=== PATIENT | female | born 1950 | race Caucasian/White ===

== ENCOUNTER → 2023-12-30 14:05 | Outpatient (REF) | payer BC, SELFPAY | LOC: WDC 14:05 | PROVIDERS: ATTENDING PHYSICIAN Obstetrics & Gynecology Gynecology; FAMILY PHYSICIAN Family Medicine | DX: Z12.31 Encounter for screening mammogram for malignant neoplasm of breast (principal) | CPT/HCPCS: 77063; 77067 ==

== ENCOUNTER → 2024-01-02 11:12 | Outpatient (REF) | payer BC, SELFPAY ==
[2024-01-02 12:17] LABS: % Basophils 0.7 % (0-2); % Eosinophils 1.7 % (0-6); % Immature Granulocytes 0.3 % (0-0.5); % Lymphocytes 26.1 % (20.5-51.1); % Neutrophils 62.2 % (42.2-75.2); Absolute Eosinophils 0.1 10^3/uL (0-0.7); Absolute Lymphocytes 1.5 10^3/uL (1.2-3.4); Absolute Monocytes 0.5 10^3/uL (0.1-0.6); Absolute Neutrophils 3.6 10^3/uL (1.4-6.5); Hematocrit 40.3 % (37.0-47.0); Hemoglobin 13.8 g/dL (12.0-16.0); Mean Corp Hgb Conc. 34.2 g/dL (33.0-37.0); Mean Corpuscular Hgb 29.7 pg (27.0-31.0); Mean Corpuscular Volume 86.7 fL (81.0-99.0); Mean Platelet Volume 8.9 fL (7.4-10.4); Nucleated Red Blood Cells % 0 %; Platelet Count 234 10^3/uL (130-400); Red Blood Cell Count 4.65 10^6/uL (4.20-5.40); Red Cell Dist. Width 12.9 % (11.5-14.5); White Blood Cell Count 5.8 10^3/uL (4.8-10.8)
[2024-01-02 12:40] LABS: ALT (SGPT) 28 U/L (0-35); AST (SGOT) 29 U/L (14-36); Albumin 4.2 g/dl (3.5-5.0); Alkaline Phosphatase 57 U/L (38-126); Blood Urea Nitrogen 13 mg/dl (7-17); Calcium 9.4 mg/dl (8.4-10.2); Carbon Dioxide 28 mmol/L (22-30); Chloride 102 mmol/L (98-107); Creatine Phosphokinase 57 U/L (30-135); Glucose 91 mg/dl (70-99); Potassium 4.4 mmol/L (3.5-5.1); Sodium 135 mmol/L (135-145); Total Bilirubin 0.9 mg/dl (0.2-1.3); Total Protein 6.7 g/dl (6.3-8.2); eGFR > 60.00
[2024-01-02 12:58] LABS: Vitamin D, 25-OH*** 51.7 ng/mL (30-80)
[2024-01-02 13:09] LABS: Erythrocyte Sed Rate 8 mm/hour (0-20)
[2024-01-02 13:12] LABS: TSH 1.79 uIU/ml (0.47-4.68)
[2024-01-02 19:09] LABS: Hepatitis B Surface Antigen Negative (Negative)
[2024-01-02 19:26] LABS: Hepatitis C Antibody Negative (Negative)
[2024-01-05 01:38] LABS: SSA 52 (Ro)(ENA) Ab, IgG 1 AU/mL (0-40); SSA 60 (Ro)(ENA) Ab, IgG 1 AU/mL (0-40); SSB (La)(ENA) Ab, IgG 0 AU/mL (0-40)
[2024-01-05 02:53] LABS: CCP Antibody IgG/IgA 3 Units (0-19)
== END ==
LOC: REG 11:12
PROVIDERS: ATTENDING PHYSICIAN Internal Medicine Rheumatology; FAMILY PHYSICIAN Family Medicine
DX: E03.9 Hypothyroidism, unspecified (principal); E55.9 Vitamin D deficiency, unspecified; G56.02 Carpal tunnel syndrome, left upper limb; H04.123 Dry eye syndrome of bilateral lacrimal glands; M06.4 Inflammatory polyarthropathy; M25.511 Pain in right shoulder; M25.512 Pain in left shoulder; M35.3 Polymyalgia rheumatica; M54.50 Low back pain, unspecified; M79.10 Myalgia, unspecified site; Z11.59 Encounter for screening for other viral diseases; Z79.899 Other long term (current) drug therapy
CPT/HCPCS: 36415; 72100; 72170; 73030; 80053; 82306; 82550; 84443; 84550; 85025; 85652; 86140; 86200; 86235; 86803; 87340

== ENCOUNTER → 2024-02-03 13:03 | Outpatient (REF) | payer BC, SELFPAY | LOC: HWRAD 13:03 | PROVIDERS: ATTENDING PHYSICIAN Urology; FAMILY PHYSICIAN Family Medicine | DX: N81.10 Cystocele, unspecified (principal); R33.9 Retention of urine, unspecified; N39.0 Urinary tract infection, site not specified; R31.0 Gross hematuria; M62.89 Other specified disorders of muscle | CPT/HCPCS: 74178; Q9967 ==

== ENCOUNTER → 2024-03-01 11:49 | Outpatient (REF) | payer BC, SELFPAY ==
[2024-03-01 12:37] LABS: Erythrocyte Sed Rate 6 mm/hour (0-20)
[2024-03-01 14:02] LABS: Blood Urea Nitrogen 13 mg/dl (7-17); Calcium 9.8 mg/dl (8.4-10.2); Carbon Dioxide 25 mmol/L (22-30); Chloride 102 mmol/L (98-107); Glucose 107 mg/dl (70-99); Potassium 4.1 mmol/L (3.5-5.1); Sodium 135 mmol/L (135-145); eGFR > 60.00
[2024-03-01 14:07] LABS: C-Reactive Protein < 5.00 mg/L (0.0-10.00)
[2024-03-01 20:33] LABS: Hepatitis B Core Ab, Total Negative (Negative)
[2024-03-03 10:18] LABS: Intact PTH 53.8 pg/ml (13.6-85.8)
[2024-03-03 12:51] LABS: Quantiferon Mitogen minus NIL 4.97 IU/mL; Quantiferon NIL 0.03 IU/mL; Quantiferon TB Gold Plus Negative (Negative)
[2024-03-06 15:22] LABS: IgA 109 mg/dL (68-408); IgG 554 mg/dL (768-1632); IgM 55 mg/dL (35-263)
[2024-03-06 17:56] LABS: Albumin 4.11 g/dL (3.75-5.01); Alpha 1 Globulin 0.28 g/dL (0.19-0.46); Alpha 2 Globulin 0.87 g/dL (0.48-1.05); SPEP IFE Reflex IFE Done; Total Protein-Electrophoresis 6.5 g/dL (6.3-8.2)
== END ==
LOC: REG 11:49
PROVIDERS: ATTENDING PHYSICIAN Internal Medicine Rheumatology; FAMILY PHYSICIAN Family Medicine
DX: D89.2 Hypergammaglobulinemia, unspecified (principal); E21.5 Disorder of parathyroid gland, unspecified; E55.9 Vitamin D deficiency, unspecified; H04.123 Dry eye syndrome of bilateral lacrimal glands; M16.0 Bilateral primary osteoarthritis of hip; M19.011 Primary osteoarthritis, right shoulder; M19.012 Primary osteoarthritis, left shoulder; Z13.820 Encounter for screening for osteoporosis; Z79.899 Other long term (current) drug therapy
CPT/HCPCS: 36415; 80048; 82784; 83970; 84155; 84165; 85652; 86140; 86334; 86480; 86704

== ENCOUNTER → 2024-03-13 13:55 | Outpatient (REF) | payer BC, SELFPAY | LOC: RAD 13:55 | PROVIDERS: ATTENDING PHYSICIAN Internal Medicine Rheumatology; FAMILY PHYSICIAN Family Medicine | DX: M81.0 Age-related osteoporosis without current pathological fracture (principal); Z13.820 Encounter for screening for osteoporosis | CPT/HCPCS: 77080; 77081 ==

== ENCOUNTER → 2024-10-18 10:26 | Outpatient (REF) | payer BC, SELFPAY | LOC: PAVMRI 10:26 | PROVIDERS: ATTENDING PHYSICIAN Psychiatry & Neurology Neurology; FAMILY PHYSICIAN Family Medicine | DX: G37.9 Demyelinating disease of central nervous system, unspecified (principal) | CPT/HCPCS: 70553; 72156; A9575 ==

== ENCOUNTER → 2024-12-05 06:43 | Outpatient (REF) | payer BC, SELFPAY | LOC: MRI 3T 06:43 | PROVIDERS: ATTENDING PHYSICIAN Neurological Surgery; FAMILY PHYSICIAN Family Medicine | DX: M48.062 Spinal stenosis, lumbar region with neurogenic claudication (principal) | CPT/HCPCS: 72148 ==

== ENCOUNTER → 2024-12-31 09:09 | Outpatient (REF) | payer BC, SELFPAY | LOC: HWWDC 09:09 | PROVIDERS: ATTENDING PHYSICIAN Obstetrics & Gynecology Gynecology; FAMILY PHYSICIAN Family Medicine | DX: Z12.31 Encounter for screening mammogram for malignant neoplasm of breast (principal) | CPT/HCPCS: 77063; 77067 ==

== ENCOUNTER → 2025-01-18 09:07 | Outpatient (REF) | payer BC, SELFPAY | LOC: RAD 09:07 | PROVIDERS: ATTENDING PHYSICIAN Internal Medicine Rheumatology; FAMILY PHYSICIAN Family Medicine | DX: M17.0 Bilateral primary osteoarthritis of knee (principal); M35.3 Polymyalgia rheumatica | CPT/HCPCS: 73560; 73565 ==

== ENCOUNTER 2025-07-16 12:30 | Inpatient (IN) | payer MEDICARE, BC, SELFPAY ==
[2025-07-16] VITALS (15 sets, daily range): BP systolic 109–152; BP diastolic 54–75; BMI 26.2
[2025-07-16 08:51] LABS: Hematocrit 39.6 % (37.0-47.0); Hemoglobin 13.2 g/dL (12.0-16.0); Mean Corp Hgb Conc. 33.3 g/dL (33.0-37.0); Mean Corpuscular Volume 89.2 fL (81.0-99.0); Nucleated Red Blood Cells % 0 %; Platelet Count 200 10^3/uL (130-400); Red Cell Dist. Width 12.9 % (11.5-14.5)
[2025-07-16 09:16] LABS: ALT (SGPT) 21 U/L (0-35); AST (SGOT) 22 U/L (14-36); Albumin 4.1 g/dl (3.5-5.0); Alkaline Phosphatase 33 U/L (38-126); Blood Urea Nitrogen 11 mg/dl (7-17); Calcium 9.1 mg/dl (8.4-10.2); Carbon Dioxide 29 mmol/L (22-30); Chloride 106 mmol/L (98-107); Glucose 84 mg/dl (70-99); Potassium 4.2 mmol/L (3.5-5.1); Sodium 140 mmol/L (135-145); Total Protein 6.9 g/dl (6.3-8.2); eGFR > 60.00
[2025-07-16 09:36] LABS: Troponin I < 0.012 ng/ml
--- NOTE | 2025-07-16 10:01 | ED.GENMED ---
History of Present Illness
General
Chief Complaint: Chest Pain
Source: patient
Exam Limitations: none
Time Seen by Provider: 07/16/25 10:01
History of Present Illness
History of Present Illness:
Patient with indigestion-like symptoms for 2 weeks. Nonexertional. However is also noted shortness of breath with exertion recently. Cardiac history. Recently radiated to her jaw. Asymptomatic currently
Past History
Past History
ED Past Medical History: Asthma, CAD and Hypercholesterolemia
ED Past Surgical History: Cardiac, Tonsilectomy, Urological and Other
Social History
Tobacco: Non-smoker
Alcohol: None
Personal:
Living: with family
Employment: Employed
Family History
Family History: Other (Father with colon cancer sister with ovarian cancer mother with coronary artery disease at age 68)
Review of Systems
Review of Systems
All Other Systems: Not applicable
Constitutional: Denies fever
Cardiac: Denies syncope
Phy Exam
Physical Exam
Physical Exam:
GENERAL: Alert and oriented in no apparent distress
EYE: Orbits normal.
NECK: Supple, no significant adenopathy.
ENT: Pharynx without erythema
CARDIAC: Regular rate and rhythm without any obvious murmurs.
LUNGS: Clear breath sounds,normal
ABDOMEN: Soft, without focal tenderness or distention
NEUROLOGICAL: Alert and oriented , grossly non-focal
SKIN: Warm and dry, no rash or lesion, no discoloration, skin intact.
MUSCULOSKELETAL: No edema,no deformity.Good color
PSYCH: Normal and appropriate interaction.
Scores
Heart Score for Chest Pain Patients
STEMI patient?: No
History: Moderately Suspicious
ECG: Nonspecific Repolarization
Age: >/= 65 years
Risk Factors: >/= 3 Risk Factors or History of CAD
Troponin: </= Normal Limit
Heart Score for Chest Pain Patients: 6
Heart Score Risk: 20.3% MACE over next 6 weeks
Course
Orders/Labs/Results
Orders:
Orders
07/16/25 Breakfast
NPO
Allow oral meds: Yes
Allow clear liquids: No
07/16/25 08:20
ECG [Electrocardiogram (*1)] Urgent
Reason for Study: Chest Pain
EKG- Treatment ONCE
07/16/25 08:35
Complete Blood Count/With Diff Urgent
Comprehensive Metabolic Panel Urgent
Glycohemoglobin (HgbA1c) Urgent
Troponin I Urgent
07/16/25 10:19
CXR2 [CR Chest - 2 Views ] Urgent
Comment:
Reason For Exam: cp
07/16/25 10:56
Admit/Transfer Patient As Directed
Co-Sign Provider:
Level of Care: Inpatient admission
Assign to:: IVU
Physician / Group: CBC
Diagnosis: Chest pain
Reason for Hospitalization: Chest pain, coronary artery disease
Expected length of stay greater than two midnights?: Yes
ELOS- Estimated Length of Stay in days: 3
I certify the patient meets the requirements for IP care: Yes
Code Status As Directed
Resuscitation Status: Full Code
PRN Pain Medication Management As Directed
May give lesser potent ordered pain med per pt: Yes
preference::
Protocol:: Medication orders for pain may be administered in a
manner that supports deferring to patient preference
when the pt is:
- Requesting an ordered lesser potent pain medication.
Least to most potent pain medications are defined
as: acetaminophen < NSAID < tramadol < opioids
(morphine, oxycodone, hydromorphone).
- Requesting a lesser dose of the same medication IF
ORDERED.
- Requesting a less intrusive route of administration
if both routes are prescribed by the provider (PO <
IV).
07/16/25 11:11
Add On- LAB Routine
Tests Added?: HgbA1c
07/16/25 11:23
Aspirin Chewable [Low Strength Aspirin] 324 mg PO NOW STA
diazePAM [Valium Injection] 2 mg IV NOW STA
07/16/25 11:33
Troponin I Routine
07/16/25 12:18
Echo 2D MMode Color/Doppler Routine
Reason for Study: chest pain
VTE Contraindication Routine
VTE Mechanical Device Contraindication: Medical Contraindication
Pharmocologic Contraindication: Medical Contraindication
Activity As Directed
Activity Level: As Tolerated
ECG as needed As Directed
ECG as needed for:: Chest Pain
INT (Intravenous Needle Therapy) As Directed
Comment: maintain peripheral IV access
Intake/ Output As Directed
Frequency: Per unit guidelines
Vital Signs As Directed
Frequency: q4h
Weight As Directed
Frequency: Once
Type of Scale: Standing Scale
07/16/25 12:37
Acetaminophen [Tylenol] 500 mg PO Q4HPRN PRN pain
Nitroglycerin Sublingual [Nitrostat (Sublingual)] 0.4 mg SL [id number] PRN
07/16/25 12:56
Albuterol [ProAIR HFA INHALER] 1 puff INH R Q4HPRN PRN
07/16/25 20:00
Famotidine [Pepcid] 40 mg PO BID
Methenamine Hippurate [Hiprex] 1 gram PO BID
07/16/25 22:00
Metoprolol Xl [Toprol Xl] 25 mg PO HS
07/17/25 06:00
Basic Metabolic Panel IN AM
Cardiovascular Evaluation IN AM
07/17/25 08:00
Amlodipine [Norvasc] 5 mg PO DAILY
Aspirin Low Dose EC [Aspir Low (Enteric Coated)] 81 mg PO DAILY
07/17/25 18:00
Rosuvastatin Calcium [Crestor] 5 mg PO MOWEFR@1800
Abnormal Lab Results
07/16/25
08:35
Monocytes % 9.5 H %
(1.7-9.3)
Hemoglobin A1c 5.7 H %
(4.0-5.6)
Alkaline Phosphatase 33 L U/L
(38-126)
07/16/25 08:35
07/16/25 08:35
Vital Signs
Initial and Last Documented VS:
Initial Vital Signs
Temp Pulse Resp BP Pulse Ox
97.7 F 65 18 152/75 98
07/16/25 08:25 07/16/25 08:25 07/16/25 08:25 07/16/25 08:25 07/16/25 08:25
Last Documented Vital Signs
Temp Pulse Resp BP Pulse Ox
97.8 F 56 18 141/70 97
07/16/25 10:27 07/16/25 12:01 07/16/25 12:01 07/16/25 12:01 07/16/25 12:01
MDM/Problems Addressed
Differential Diagnosis Includes:
Concern for unstable angina. Especially with shortness of breath with exertion recently. Cardiac history. With episode radiating to jaw will refer to cardiology. They were concerned enough to have her go to cardiac catheterization
*Radiology
Radiology exam reviewed: preliminary read by ED provider (neg)
*Pulse Oximetry
SaO2: 98
Oxygen Mode of Delivery: Room air
Patient hypoxic: no
*EKG
Interpreted by ED Provider?: Yes
Interpretation: abnormal
Comparison EKG: no changes
Heart Rate: 57
Rate: bradycardiac
Rhythm: sinus
[place]: normal axis
Interval: normal interval
QRS Pattern: normal QRS
Ischemia: no ischemia
*Critical Care Note
Total Time (30-74mins, 75-104mins- exclusive of procedures): Not Applicable
ED Attending Note
-
Portions of this chart may have been created with voice recognition software.� Occasional wrong word or��sound alike� substitutions may have occurred due to the inherent limitations of voice recognition software.
Discharge Plan
Departure
Patient Disposition: Admit
Date of Disposition: 07/16/25
Time of Disposition: 11:07
Presentation/result/management discussed w/ accepting MD/DO: Cardiology
Discharge Problem:
Unstable angina, History of CAD/stent
Interventions
Interventions:
*Risk Screen - Suicide Last Done: 07/16/25 08:25
*General Assessment Last Done: 07/16/25 08:25
*Neglect/Abuse Screening Last Done: 07/16/25 10:27
*ED- Fall Risk Assessment Last Done: 07/16/25 10:27
*ED COVID-19 Vaccine History Last Done: 07/16/25 10:27
*Nursing Disposition Last Done: 07/16/25 12:56
ED- Cardiac Assessment Last Done: 07/16/25 10:27
Discharge Date and Time
Discharge Date/Time: 07/16/25 12:57
--- NOTE | 2025-07-16 11:00 | HPS.HSE ---
Addendum entered and electronically signed by Jovi Burrows MD 07/16/25 11:46:
I saw and examined the patient.
The DIRECTOR OF ELEMENTARY EDUCATION's note was reviewed and I agree with the note.
Comment: 74-year-old female with CAD (BRICE to LAD 2016), endothelial dysfunction, hypercholesterolemia, hypertriglyceridemia, statin intolerance, hypertension, prediabetes, and splenic artery aneurysm who presented to the emergency department today
with a chief complaint of chest pain.
She also has been having ongoing heartburn related pain. This has been on and off for the past few weeks. This is consistent with her previous anginal symptoms. Given her known CAD history, progressively worsening symptoms, and pain consistent
with prior anginal symptoms we will proceed with coronary angiography.
Original Note:
Family Physician
-
Family Physician: Roderick Watkins
Outpatient Director Consumer Affairs: Dr. Melissa
Chief Complaint
-
Chest pain
History of Present Illness
Libertad Stallings is a 74-year-old female with CAD (BRICE to LAD 2015), endothelial dysfunction, hypercholesterolemia, hypertriglyceridemia, statin intolerance, hypertension, prediabetes, and splenic artery aneurysm who presented to the emergency
department today with a chief complaint of chest pain. She reports it is a chest burning sensation that is reminiscent of indigestion. It radiates into her left jaw. She reports it was 9/10 in severity. This occurred for several hours last night.
She was scared to go to sleep. Currently, she is still having chest pain 5/10. Her 'GERD feelings' have been ongoing for several weeks. She reports this is reminiscent prior to getting a stent in the past. The main difference is that it was more
severe and she had shortness of breath in addition to the chest burning sensation. When she required LAD PCI, she had an abnormal troponin.
She is recently .
Medical History
Past Medical History
Past Medical History: Reports Asthma, CAD, HTN, Hypercholesterolemia and Other (Prediabetes)
Past Surgical History: Reports Gynocological and Orthopedic
Social History
Tobacco: Non-smoker
Alcohol: None
Drug: None
Personal:
Family History
Family History: Not pertinent
Allergies / Home Medications
Allergies reflects when Allergies were last updated in [employer].
Home Medications with original date entered in [employer]
Allergy/Medication List:
Allergies:
Lisinopril caused cough
Niacin caused swelling
Phenobarbital caused a rash
Statins cause myalgia
Repatha causes GI upset
Sulfamethoxazole causes dizziness
Home medication list:
Acetaminophen 500 mg p.o. every 4 hours as needed pain
Albuterol sulfate 1 puff every 4 hours as needed shortness of breath
Amlodipine 5 mg p.o. daily
Aspirin 81 mg p.o. daily
Caltrate 1 tab p.o. daily
Calcium carbonate�vitamin D3 1 tablet p.o. daily
Vitamin D3 25 micrograms p.o. daily
CoQ10 100 mg twice daily
Vitamin B12 1000 mcg p.o. daily
Famotidine 40 mg p.o. twice daily
Fluticasone 1 puff INH twice daily
Ipratropium bromide 2 sprays intranasal 3 times daily as needed congestion
Lysine 500 mg p.o. as needed mouth ulcer
Methenamine huppurate 1 g p.o. daily
Metoprolol succinate 25 mg p.o. at bedtime
Phenazopridine 200 mg p.o. 3 times daily as needed urinary irritation
Rosuvastatin 5 mg p.o. Tuesday/Tuesday/Tuesday
Review of Systems
-
History Source: Patient
A 12 point ROS was completed and negative except as noted: Yes
Constitutional: Reports No Symptoms
EENT: Reports No Symptoms
Respiratory: Reports No Symptoms
Cardiac: Reports See HPI
Abdomen/GI: Reports See HPI
: Reports No Symptoms
Musculoskeletal: Reports No Symptoms
Skin: Reports No Symptoms
Neurological: Reports No Symptoms
Endocrine: Reports No Symptoms
Hematologic/Lymphatic: Reports No Symptoms
Psych: Reports No Symptoms
Physical Exam
Vital Signs
Vital Signs
Temp Pulse Resp BP Pulse Ox
97.8 F 53 16 140/75 99
07/16/25 10:27 07/16/25 10:27 07/16/25 10:27 07/16/25 10:27 07/16/25 10:27
Physical Exam
General: Well Developed, Well Nourished, No Apparent Distress, Comfortable and Conversant
HEENT: NormoCephalic, Anicteric and Moist mucous membranes
Respiratory: Clear and Non Labored Respirations
Cardiac: S1/S2 and Regular Rhythm
Breast: Deferred by me
GI: Soft, Non Tender, Non Distended and Normal Bowel Sounds
Rectal: Deferred by Provider
Genito-urinary: No costovertebral tender
Musculoskeletal: No Clubbing, No Cyanosis and No Edema
Skin: Warm and Dry
Neuro: Awake and Alert
Hematologic/Lymphatic: No Lymphadenopathy
Psych: Calm
Laboratory Results
-
07/16/25 08:35
07/16/25 08:35
Laboratory Results
Total Bilirubin 0.8 mg/dl (0.2-1.3) 07/16/25 08:35
AST 22 U/L (14-36) 07/16/25 08:35
ALT 21 U/L (0-35) 07/16/25 08:35
Alkaline Phosphatase 33 U/L (38-126) L 07/16/25 08:35
Troponin I < 0.012 ng/ml 07/16/25 08:35
Data Reviewed
-
Diagnostic Radiology: Report Reviewed by me (CXR)
Medical Tests (Nuc Med, Echo, EKG etc): Report Reviewed by me
Lab Data: Labs Reviewed by me
Old Records: Reviewed
Impression/Plan
-
I/P: 74F with CAD (BRICE to LAD 2016), endothelial dysfunction, hypercholesterolemia, hypertriglyceridemia, statin intolerance, hypertension, prediabetes, and splenic artery aneurysm who presented to the emergency department today with a chief
complaint of chest pain
Outpatient re dye hand: Dr. Melissa
Chest burning
-Reports / overnight, still having chest discomfort
- Initial troponin <0.012, repeat troponin pending
- EKG without acute ischemia
Coronary artery disease
-Continue ASA
-Known endothelial dysfunction
-Isosorbide mononitrate caused headache, amlodipine 10 mg caused lower extremity swelling
- No SGLT2i with frequent UTIs
Hypertension
- Chronic and stable
- Lisinopril caused a cough in the past
Hypercholesterolemia with hypertriglyceridemia
-Statin intolerance
-Only tolerates rosuvastatin 5 mg 3 times per week
-Zetia cause worsened myalgias and arthralgias, she is not interested in Vascepa due to GI side effects, Repatha caused GI distress
- Fasting lipid panel in a.m., consider Praluent or inclisiran
Prediabetes, update HgbA1c
Aneurysm of splenic artery, has been stable on outpatient CT scan
--- NOTE | 2025-07-16 11:20 | EDRN ---
public administration professor currently at the pts bedside
[2025-07-16] MEDS: VALIUM INJECTION 2 MG IV (11:29)
[2025-07-16] MEDS: LOW STRENGTH ASPIRIN 324 MG PO (11:30)
[2025-07-16 12:05] LABS: Glycohemoglobin (HgbA1c) 5.7 % (4.0-5.6)
--- NOTE | 2025-07-16 12:56 | EDRN ---
the bottle label inspector called this RN and this RN gave verbal report
[2025-07-16 13:02] LABS: Troponin I < 0.012 ng/ml
--- NOTE | 2025-07-16 13:58 | ITS.CL.PN ---
Infectious Disease Physician - Procedure Note
Procedure
Procedure Note:
CARDIAC CATHETERIZATION REPORT
Date of Procedure: 07/16/2025
Referring: Dr. Jovi Burrows MD
Indication: ACS
PROCEDURE(S)
1. left heart catheterization
2. coronary angiography
ACCESS: 6F right radial artery (closure: radial band)
CATHETERS
1. 6F JR4
2. 6F JL3.5
MODERATE SEDATION: 25 minutes of moderate sedation was utilized. An independent medical legal investigator was present to assist with and help manage the patient's level of consciousness and physiologic status.
HEMODYNAMIC DATA
LV 118/6 (EDP 14) mmHg
AO 112/58 (mean 80) mmHg
CORONARY ANGIOGRAPHY
Dominance: Right
LM: Large, normal
LAD: Large vessel giving rise to 3 small diagonal branches. There is a patent stent in the mid LAD terminating before the takeoff of D3 with mild ISR. There is a focal 60% stenosis in the proximal portion of the D3 that is mildly progressed from
prior angiography. This is a small vessel supplying a relatively small territory and would not be expected to cause rest angina.
LCx: Large vessel giving rise to a small OM1 and large OM2. There is a long segment of diffuse up to 50% stenosis spanning from the proximal circumflex into the midportion of the OM2. This is unchanged from 2022 angiography.
RCA: Large vessel giving rise to large RPDA, large RPL1, and small RPL2. There are trivial luminal irregularities only.
RADIATION: dose 134 mGy; DAP 8.1 Gy*cm2; fluoroscopy time 2.4 min
CONCLUSIONS
1. Mild to moderate nonobstructive coronary artery disease unchanged from 2022 angiography
2. Mildly elevated LV filling pressure and no aortic stenosis
RECOMMENDATIONS
1. Secondary prevention coronary artery disease
2. Workup for etiology of chest pain symptoms not related to epicardial coronary artery disease.
Copy to: Kayli Melissa MD (hand patcher); Roderick Watkins MD (PCP)
Signed: Luke Santiago MD, PhD
== END 2025-07-16 17:30 | disposition home or self-care (01) | DRG 287 ==
LOC: CATH-IN 12:30
PROVIDERS: Emergency Medicine; Nurse Practitioner Gerontology; Student in an Organized Health Care Education/Training Program; ADMITTING PHYSICIAN Internal Medicine Cardiovascular Disease; EMERGENCY PHYSICIAN Emergency Medicine; FAMILY PHYSICIAN Family Medicine
PROC: 4A023N7 Measurement of Cardiac Sampling and Pressure, Left Heart, Percutaneous Approach (ICD-10-PCS; 2025-07-16)
PROC: B2111ZZ Fluoroscopy of Multiple Coronary Arteries using Low Osmolar Contrast (ICD-10-PCS; 2025-07-16)
DX: I25.110 Atherosclerotic heart disease of native coronary artery with unstable angina pectoris (principal); E78.00 Pure hypercholesterolemia, unspecified; E78.1 Pure hyperglyceridemia; I10 Essential (primary) hypertension; R73.03 Prediabetes; K21.9 Gastro-esophageal reflux disease without esophagitis; Z79.82 Long term (current) use of aspirin; J45.909 Unspecified asthma, uncomplicated; Z79.899 Other long term (current) drug therapy; Z80.0 Family history of malignant neoplasm of digestive organs; Z80.41 Family history of malignant neoplasm of ovary; Z82.49 Family history of ischemic heart disease and other diseases of the circulatory system; Z95.5 Presence of coronary angioplasty implant and graft
CPT/HCPCS: 71046; 80053; 83036; 84484; 85025; 93005; 93458; 96374; 99152; 99153; 99285; C1894; Q9967

== ENCOUNTER → 2025-10-15 17:28 | Outpatient (REF) | payer BC, SELFPAY | LOC: MRI 17:28 | PROVIDERS: ATTENDING PHYSICIAN Psychiatry & Neurology Neurology; FAMILY PHYSICIAN Family Medicine | DX: G37.9 Demyelinating disease of central nervous system, unspecified (principal) | CPT/HCPCS: 70553; A9575 ==

== ENCOUNTER → 2025-10-22 17:31 | Outpatient (REF) | payer BC, SELFPAY | LOC: MRI 17:31 | PROVIDERS: ATTENDING PHYSICIAN Psychiatry & Neurology Neurology; FAMILY PHYSICIAN Family Medicine | DX: G37.9 Demyelinating disease of central nervous system, unspecified (principal) | CPT/HCPCS: 72156; A9575 ==